=== PATIENT | male | born 1940 | race Caucasian/White ===

== ENCOUNTER 2023-08-05 17:01 | Inpatient (IN) ==
--- NOTE | 2023-08-05 18:04 | Emergency Department Note ---
Impression & Plan Knee pain, Knee Injury, Elevated serum creatinine ADMIT ED Provider Note HPI: History obtained from patient and family member at the bedside The patient is a 83-year-old gentleman who presents emergency department with a chief complaint of right lower extremity pain. Patient states that on of this past week he had a fall when he was walking down some steps and he felt some acute pain in his right knee and then fell to the ground. Patient states that he had some pain in his right knee and his right ankle since then. He has been ambulatory but with increasing difficulty and pain. Patient also states he was concerned he might be dehydrated, patient denies any nausea or vomiting, denies any chest pain or shortness of breath. Patient denies any head injury. ROS: - Per HPI Differential Diagnosis: Right knee dislocation, proximal tibia fracture, distal femur fracture, patellar dislocation, knee sprain, meniscus tear, ankle sprain, ankle dislocation, ankle fracture, amongst other potential pathologies. *Outpatient medications and allergy history reviewed. PE: General: Alert HEENT: Normocephalic, trachea midline Eyes: Extraocular eye movement is intact, no scleral erythema Pulmonary: Clear to auscultation bilaterally, no wheezing Cardio: Regular rate and rhythm GI: Abdomen is soft to palpation : No suprapubic tenderness MSK: There is mild swelling noted at the right knee and the right ankle without any overlying erythema, range of motion is intact on exam, there is a palpable dorsalis pedis pulse in the right lower extremity, there is no cyanosis, otherwise no evidence of trauma or malformation of the extremities, no edema Skin: No evidence of rash Neuro: Alert, no focal deficits Psychiatric: Cooperative INDEPENDENT 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 Lab work shows no leukocytosis, hemoglobin is stable at 12.9, platelet count is normal, CMP shows an elevated creatinine at 1.45, BUN is elevated at 37, patient was given IV fluids here in the ED. There is no transaminitis, bilirubin is normal. X-ray imaging of the right knee shows a small effusion without evidence of bony abnormality. X-ray imaging of the right ankle does not show any evidence of fracture. I discussed the above findings with the patient, he tells me he does not feel that he can ambulate at all and he states he lives alone. Patient also states he has stairs to go up to to get into his house. Overall he does not feel comfortable with discharge. His symptoms are likely secondary to a soft tissue injury of the right knee where he is having majority of his pain. I feel he would benefit from PT/OT consultation and admission to the hospital at this time. Patient is in agreement. Case was discussed with the on-call hospitalist for [facility] [place], Dr. Ma, the patient was placed for admission in stable condition. Consultants/Discussions held with other healthcare providers: -Hospitalist, Dr. Ma Disposition discussion held by myself with: -Patient Diagnosis: 1. Right knee pain/injury, acute 2. Ambulatory dysfunction, acute 3. Elevated creatinine, acute 4. Elevated BUN, acute 5. Hyperglycemia, acute, mild Disposition: Admission Roberto Canales DO Emergency Medicine Past Med/Surg History Medical History (Updated 08/05/23 @ 19:34 by Roberto Canales DO) STEPHEN (acute kidney injury) Hypertensive urgency Renal insufficiency Diplopia Family History Other Family history non-contributory Social History Smoking Status: Former smoker Preferred Language: Bangladeshi Feels Safe at Home: Yes Allergies Allergies Allergy/AdvReac Type Severity Reaction Status Date / Time No Known Allergies Allergy Verified 08/05/23 17:41 Home Meds Home Medications Medication Instructions Recorded Confirmed amlodipine 10 mg tablet 10 mg PO QAM 11/26/18 08/05/23 glucosamine-chondroitin 250 mg-200 1 - 2 tab PO QPM 11/26/18 08/05/23 mg tablet (Osteo Bi-Flex) labetalol 300 mg tablet See Rx Instructions .Route .COMPLEX 11/26/18 08/05/23 multivitamin (Multiple Vitamins 1 tab PO QPM 11/26/18 08/05/23 tablet) ascorbic acid (vitamin C) 1,000 mg 1 g PO QAM 08/05/23 08/05/23 tablet (Vitamin C) aspirin 81 mg tablet,delayed 81 mg PO QAM 08/05/23 08/05/23 release cholecalciferol (vitamin D3) 25 25 mcg PO QAM 08/05/23 08/05/23 mcg (1,000 unit) capsule (Vitamin D3) rosuvastatin 10 mg tablet 10 mg PO QPM 08/05/23 08/05/23 vitamins A,C,O-iwqm-vbtawy 2,148 1 tab PO BID 08/05/23 08/05/23 mcg-113 mg-45 mg-17.4 mg tablet (PreserVision AREDS) Results & Data (ED) Vital Signs Vital Signs - 24 hr 08/05/23 17:17 08/05/23 17:17 08/05/23 18:00 Temperature 37 C 37 C Temperature Source Oral Oral Pulse Rate 88 Pulse Rate [Right Radial] Respiratory Rate 19 19 Respiratory Effort / Characteristics Non-Labored Respiratory Depth Normal Respiratory Pattern Regular Blood Pressure 129/61 Blood Pressure [Left Arm] Blood Pressure Mean 83 Blood Pressure Mean [Left Arm] Pulse Oximetry 93 93 93 Oxygen Delivery Method Room Air Room Air Room Air Sepsis Recent Fever Within 48 Hours No Sepsis New/Unexplained Change in Mental Status N/A Sepsis Action Taken by Nursing No Action Required 08/05/23 19:15 08/05/23 21:00 Temperature Temperature Source Pulse Rate Pulse Rate [Right Radial] 91 H 91 H Respiratory Rate 20 17 Respiratory Effort / Characteristics Respiratory Depth Respiratory Pattern Blood Pressure Blood Pressure [Left Arm] 101/68 132/64 Blood Pressure Mean Blood Pressure Mean [Left Arm] 79 86 Pulse Oximetry 94 93 Oxygen Delivery Method Room Air Sepsis Recent Fever Within 48 Hours Sepsis New/Unexplained Change in Mental Status Sepsis Action Taken by Nursing Laboratory Data 08/05/23 18:47 08/05/23 18:47 Lab Results 08/05/23 Range/Units 18:47 WBC 5.56 (4.8-10.8) K/ul RBC 4.05 L (4.70-6.10) M/uL Hgb 12.9 L (14.0-18.0) g/dl Hct 38.1 L (42.0-52.0) % MCV 94.1 (80.0-100.0) fL MCH 31.9 (25.0-34.0) pg MCHC 33.9 (32.0-36.0) g/dL RDW Std Deviation 42.8 (36.4-46.3) fL RDW Coeff of [place] 12.3 (11.5-14.5) % Plt Count 144 (130-400) K/uL MPV 10.3 (9.4-12.4) fL Immature Gran % (Auto) 0.4 % Neut % (Auto) 77.5 % Lymph % (Auto) 6.8 % [place] % (Auto) 14.6 % Eos % (Auto) 0.5 % Baso % (Auto) 0.2 % Neut # (Auto) 4.31 (1.40-6.50) K/uL Lymph # (Auto) 0.38 L (1.20-3.40) K/uL [place] # (Auto) 0.81 H (0.11-0.59) K/uL Eos # (Auto) 0.03 (0.00-0.50) K/uL Baso # (Auto) 0.01 (0.00-0.20) K/uL Immature Gran # (Auto) 0.02 (0.01-0.20) K/uL Sodium 139 (136-145) mmol/L Potassium 4.1 (3.5-5.1) mmol/L Chloride 109 H (98-107) mmol/L Carbon Dioxide 22 (21-32) mmol/L Anion Gap 8 (3-11) BUN 37 H (6-23) mg/dl Creatinine 1.45 H (0.6-1.4) mg/dl Est Cr Clr Drug Dosing 38.5 ml/min Est GFR ( Amer) 50.5 ml/min Est GFR (Non-Af Amer) 43.6 ml/min BUN/Creatinine Ratio 25.5 H (10-20) Glucose 138 H (70-99(Fasting)) mg/dl Calcium 9.3 (8.6-10.3) mg/dl Total Bilirubin 0.9 (0.2-1.0) mg/dl AST 26 (13-39) U/L ALT 23 (7-52) U/L Alkaline Phosphatase 51 (34-104) U/L Total Protein 6.7 (6.0-8.3) gm/dl Albumin 3.4 (3.4-5.0) gm/dl Globulin 3.3 (2.5-4.0) gm/dl Albumin/Globulin Ratio 1.0 (0.9-2) Administered Medications Discontinued Medications Sodium Chloride (Nss) 1,000 mls @ 999 mls/hr IV .Q1H1M STA Stop: 08/05/23 18:59 Last Infusion: 08/05/23 20:48 Dose: Infused Documented By: Admin: 08/05/23 19:27 Dose: 999 mls/hr Documented By: CEK Imaging Data Radiologist's Impression: Ankle X-Ray 08/05/23 18:00 RIGHT ANKLE 3 VIEWS HISTORY: fall COMPARISON: None. FINDINGS: There is no fracture or dislocation. Diffuse soft tissue swelling. No radiopaque foreign bodies. IMPRESSION: No fractures. ACT 112: Negative or not required by law. Electronically signed by: Zana Gomez M.D. 08/05/2023 7:03 PM Knee X-Ray 08/05/23 18:00 RIGHT KNEE 3 VIEWS HISTORY: Right knee pain. fall COMPARISON: None. FINDINGS: There is no fracture or dislocation. Basilar calcifications are noted. Small to moderate knee effusion. Mild tricompartmental osteoarthritis. No radiopaque foreign bodies. IMPRESSION: 1. No fracture or dislocation within the right knee. 2. Small to moderate knee effusion. ACT 112: Negative or not required by law. Electronically signed by: Zana Gomez M.D. 08/05/2023 7:02 PM Discharge Plan Visit Data Chief Complaint: Knee Injury/Pain Stated Complaint: KNEE PAIN ED Provider: Roberto Canales Discharge Problem: Knee pain, Knee Injury, Elevated serum creatinine Patient Disposition: Home - Self-Care Condition: Good Discharge Instructions Gaetano/Other Patient Handouts: ED Knee Sprain Activity Restrictions/Additional Instructions: Please follow-up with your primary care doctor in 2 to 3 days for further management. Please return to the ER if you have any new or worsening symptoms. Please follow-up with orthopedics in the office in regards to your right knee pain, this is likely a soft tissue injury. Please utilize Tylenol and/or Motrin every 6-8 hours as needed for pain, please follow dosage instructions as indicated on the packaging. Please follow-up with your primary care doctor in regards to your elevated creatinine level (kidney function) noted today on your lab work. Forms Stand Alone Forms: My [facility], Important Visit Information Prescriptions Prescriptions: No Action amlodipine 10 mg tablet 10 mg PO QAM multivitamin [Multiple Vitamins] Tablet 1 tab PO QPM labetalol 300 mg tablet See Rx Instructions .ROUTE .COMPLEX Rx Instructions: TAKES 450 MG QAM, THEN 300 MG QPM. glucosamine-chondroitin [Osteo Bi-Flex] 250-200 mg Tablet 1 - 2 tab PO QPM ascorbic acid (vitamin C) [Vitamin C] 1,000 mg Tablet 1 g PO QAM aspirin 81 mg Tablet,Delayed Release (Dr/Ec) 81 mg PO QAM cholecalciferol (vitamin D3) [Vitamin D3] 25 mcg (1,000 unit) Capsule 25 mcg PO QAM rosuvastatin 10 mg tablet 10 mg PO QPM PreserVision AREDS 2,148 mcg-113 mg-45 mg-17.4mg Tablet 1 tab PO BID Rx Instructions: administer with AM and PM meals Referrals Referrals: Saleem Robles MD [Physician] - Antonia Greenberg MD [Primary Care Provider] -
--- NOTE | 2023-08-05 19:04 | XRay Report ---
RIGHT KNEE 3 VIEWS HISTORY: Right knee pain. fall COMPARISON: None. FINDINGS: There is no fracture or dislocation. Basilar calcifications are noted. Small to moderate kn ee effusion. Mild tricompartmental osteoarthritis. No radiopaque foreign bodies. IMPRESSION: 1. No fracture or dislocation within the right knee. 2. Small to moderate knee effusion. ACT 112: Negative or not required by law. Electronically signed by: Zana Gomez M.D. 08/05/2023 7:02 PM
--- NOTE | 2023-08-05 19:05 | XRay Report ---
RIGHT ANKLE 3 VIEWS HISTORY: fall COMPARISON: None. FINDINGS: There is no fracture or dislocation. Diffuse soft tissue swelling. No radiopaque foreign sapna dies. IMPRESSION: No fractures. ACT 112: Negative or not required by law. Electronically signed by: Zana Gomez M.D. 08/05/2023 7:03 PM
[2023-08-05 19:21] LABS: Basophils # (auto) 0.01 K/uL (0.00-0.20); Basophils % (auto) 0.2 %; Eosinophils # (auto) 0.03 K/uL (0.00-0.50); Eosinophils % (auto) 0.5 %; Hematocrit (blood only) 38.1 % (42.0-52.0); Hemoglobin 12.9 g/dl (14.0-18.0); Immature Granulocytes # (auto) 0.02 K/uL (0.01-0.20); Immature Granulocytes % (auto) 0.4 %; Lymphocytes # (auto) 0.38 K/uL (1.20-3.40); Lymphocytes % (auto) 6.8 %; Mean Corpuscular Hemoglobin 31.9 pg (25.0-34.0); Mean Corpuscular Hgb Conc 33.9 g/dL (32.0-36.0); Mean Corpuscular Volume 94.1 fL (80.0-100.0); Mean Platelet Volume 10.3 fL (9.4-12.4); Monocytes # (auto) 0.81 K/uL (0.11-0.59); Monocytes % (auto) 14.6 %; Neutrophils # (auto) 4.31 K/uL (1.40-6.50); Neutrophils % (auto) 77.5 %; Platelet Count 144 K/uL (130-400); RDW Coefficient of Variation 12.3 % (11.5-14.5); RDW Standard Deviation 42.8 fL (36.4-46.3); Red Blood Count 4.05 M/uL (4.70-6.10); White Blood Count 5.56 K/ul (4.8-10.8)
[2023-08-05 19:23] LABS: Albumin Level 3.4 gm/dl (3.4-5.0); BUN Creatinine Ratio 25.5 (10-20); Bilirubin,Total 0.9 mg/dl (0.2-1.0); Calcium 9.3 mg/dl (8.6-10.3); Creatinine Clr Calc Pharmacy 38.5 ml/min; Est GFR (African American) 50.5 ml/min; Est GFR (Non-African American) 43.6 ml/min; Globulin 3.3 gm/dl (2.5-4.0); Potassium 4.1 mmol/L (3.5-5.1); Total Protein 6.7 gm/dl (6.0-8.3)
[2023-08-05] MEDS: SODIUM CHLORIDE 0.9% 1,000 ML IV STA (19:27)
--- NOTE | 2023-08-05 22:10 | History & Physical Report ---
Date of Service August 05, 2023 Assessment & Plan (1) Knee pain: Plan: 83-year-old male with past medical history significant for hypertension, hyperlipidemia, CKD presents with fall and knee pain and ambulatory dysfunction. Patient states he was walking out of restaurant when he suddenly fell on his knees. Since then having a lot of pain in his knees and is not able to ambulate. Denies any chest pain or shortness of breath. No cough. No fevers. No nausea. No abdominal pain. Normal bowel and bladder movements. No headache. No dizziness. Vision is not great. Hard of hearing. Currently resting comfortably and hemodynamically stable. Fall Bilateral knee pain Ambulatory dysfunction Pain control PT OT Ortho consult for further recommendation CKD Possible CKD stage III Patient states he has chronic kidney disease Creatinine 1.45 Do not have baseline Will follow Hypertension On amlodipine On labetalol Will monitor Hyperlipidemia On statin DVT prophylaxis Lovenox Disposition Medical floor Full code History of Present Illness Chief Complaint: Fall, knee pain and ambulatory dysfunction Primary Care Provider: Antonia Greenberg MD 83-year-old male with past medical history significant for hypertension, hyperlipidemia, CKD presents with fall and knee pain and ambulatory dysfunction. Patient states he was walking out of restaurant when he suddenly fell on his knees. Since then having a lot of pain in his knees and is not able to ambulate. Denies any chest pain or shortness of breath. No cough. No fevers. No nausea. No abdominal pain. Normal bowel and bladder movements. No headache. No dizziness. Vision is not great. Hard of hearing. Currently resting comfortably and hemodynamically stable. Past med history. As mentioned above. Past surgical history. Cataracts.'s appendectomy. Removal of lingual tonsil. Social history. . She is currently quit smoking. Currently not drinking alcohol. No drug use. Family history. Father had cancer. Allergies Allergy/AdvReac Type Severity Reaction Status Date / Time No Known Allergies Allergy Verified 08/05/23 17:41 Home Medications Medication Instructions Recorded Confirmed Type amlodipine 10 mg tablet 10 mg PO QAM 11/26/18 08/05/23 History glucosamine-chondroitin 250 mg-200 1 - 2 tab PO QPM 11/26/18 08/05/23 History mg tablet (Osteo Bi-Flex) labetalol 300 mg tablet See Rx Instructions .Route .COMPLEX 11/26/18 08/05/23 History multivitamin (Multiple Vitamins 1 tab PO QPM 11/26/18 08/05/23 History tablet) ascorbic acid (vitamin C) 1,000 mg 1 g PO QAM 08/05/23 08/05/23 History tablet (Vitamin C) aspirin 81 mg tablet,delayed 81 mg PO QAM 08/05/23 08/05/23 History release cholecalciferol (vitamin D3) 25 25 mcg PO QAM 08/05/23 08/05/23 History mcg (1,000 unit) capsule (Vitamin D3) rosuvastatin 10 mg tablet 10 mg PO QPM 08/05/23 08/05/23 History vitamins A,C,X-phfz-syvfcf 2,148 1 tab PO BID 08/05/23 08/05/23 History mcg-113 mg-45 mg-17.4 mg tablet (PreserVision AREDS) Past Med/Surg History Medical History (Updated 08/05/23 @ 19:34 by Roberto Canales DO) STEPHEN (acute kidney injury) Hypertensive urgency Renal insufficiency Diplopia Family History Other Family history non-contributory Social History Smoking Status: Never smoker Hx Alcohol Use: No Hx Substance Use: No Preferred Language: Puerto Rican Communication Ability: Effective Rubber Compounder Required: No Beliefs That Will Affect Care: None Current Living Situation: Alone Other Information That Helps Us Care for You: No Feels Safe at Home: Yes Safety Concerns: Feels Safe At This Time Assistive Devices: Denture - Upper, Denture - Lower and Glasses Review of Systems Review of Systems: All systems reviewed & are unremarkable except as noted in HPI & below Physical Exam Physical Exam: General- Not in distress Head- atraumatic Eyes- PERRL. ENT- oropharynx clear Neck- supple, no JVD. Lungs- clear to auscultation no wheezing or crackles. Heart- regular rhythm; no murmur, no gallop. Abdomen- normal bowel sounds, soft, nontender, no distension. Extremities- no pretibial edema, no erythema seen. painful lower extremity movements Neuro- alert, oriented x 3; PERRL, no facial palsy; no dysarthria; moves extremities. Skin- warm & dry Results & Data Results & Data Vital Signs (Past 12 Hours) Vital Signs Temp Pulse Pulse Resp BP BP Pulse Ox 08/05/23 21:00 91 H 17 132/64 93 08/05/23 19:15 91 H 20 101/68 94 08/05/23 18:00 93 08/05/23 17:17 37 C 19 93 08/05/23 17:17 37 C 88 19 129/61 93 O2 Del Method 08/05/23 21:00 08/05/23 19:15 Room Air 08/05/23 18:00 Room Air 08/05/23 17:17 Room Air 08/05/23 17:17 Room Air Diagnostic Findings Laboratory Results WBC 5.56 K/ul (4.8-10.8) 08/05/23 18:47 RBC 4.05 M/uL (4.70-6.10) L 08/05/23 18:47 Hgb 12.9 g/dl (14.0-18.0) L 08/05/23 18:47 Hct 38.1 % (42.0-52.0) L 08/05/23 18:47 MCV 94.1 fL (80.0-100.0) 08/05/23 18:47 MCH 31.9 pg (25.0-34.0) 08/05/23 18:47 MCHC 33.9 g/dL (32.0-36.0) 08/05/23 18:47 RDW Std Deviation 42.8 fL (36.4-46.3) 08/05/23 18:47 RDW Coeff of [place] 12.3 % (11.5-14.5) 08/05/23 18:47 Plt Count 144 K/uL (130-400) 08/05/23 18:47 MPV 10.3 fL (9.4-12.4) 08/05/23 18:47 Immature Gran % (Auto) 0.4 % 08/05/23 18:47 Neut % (Auto) 77.5 % 08/05/23 18:47 Lymph % (Auto) 6.8 % 08/05/23 18:47 [place] % (Auto) 14.6 % 08/05/23 18:47 Eos % (Auto) 0.5 % 08/05/23 18:47 Baso % (Auto) 0.2 % 08/05/23 18:47 Neut # (Auto) 4.31 K/uL (1.40-6.50) 08/05/23 18:47 Lymph # (Auto) 0.38 K/uL (1.20-3.40) L 08/05/23 18:47 [place] # (Auto) 0.81 K/uL (0.11-0.59) H 08/05/23 18:47 Eos # (Auto) 0.03 K/uL (0.00-0.50) 08/05/23 18:47 Baso # (Auto) 0.01 K/uL (0.00-0.20) 08/05/23 18:47 Immature Gran # (Auto) 0.02 K/uL (0.01-0.20) 08/05/23 18:47 Sodium 139 mmol/L (136-145) 08/05/23 18:47 Potassium 4.1 mmol/L (3.5-5.1) 08/05/23 18:47 Chloride 109 mmol/L (98-107) H 08/05/23 18:47 Carbon Dioxide 22 mmol/L (21-32) 08/05/23 18:47 Anion Gap 8 (3-11) 08/05/23 18:47 BUN 37 mg/dl (6-23) H 08/05/23 18:47 Creatinine 1.45 mg/dl (0.6-1.4) H 08/05/23 18:47 Est Cr Clr Drug Dosing 38.5 ml/min 08/05/23 18:47 Est GFR ( Amer) 50.5 ml/min 08/05/23 18:47 Est GFR (Non-Af Amer) 43.6 ml/min 08/05/23 18:47 BUN/Creatinine Ratio 25.5 (10-20) H 08/05/23 18:47 Glucose 138 mg/dl (70-99(Fasting)) H 08/05/23 18:47 Calcium 9.3 mg/dl (8.6-10.3) 08/05/23 18:47 Total Bilirubin 0.9 mg/dl (0.2-1.0) 08/05/23 18:47 AST 26 U/L (13-39) 08/05/23 18:47 ALT 23 U/L (7-52) 08/05/23 18:47 Alkaline Phosphatase 51 U/L (34-104) 08/05/23 18:47 Total Protein 6.7 gm/dl (6.0-8.3) 08/05/23 18:47 Albumin 3.4 gm/dl (3.4-5.0) 08/05/23 18:47 Globulin 3.3 gm/dl (2.5-4.0) 08/05/23 18:47 Albumin/Globulin Ratio 1.0 (0.9-2) 08/05/23 18:47 Impressions Ankle X-Ray 08/05/23 18:00 RIGHT ANKLE 3 VIEWS HISTORY: fall COMPARISON: None. FINDINGS: There is no fracture or dislocation. Diffuse soft tissue swelling. No radiopaque foreign bodies. IMPRESSION: No fractures. ACT 112: Negative or not required by law. Electronically signed by: Zana Gomez M.D. 08/05/2023 7:03 PM Knee X-Ray 08/05/23 18:00 RIGHT KNEE 3 VIEWS HISTORY: Right knee pain. fall COMPARISON: None. FINDINGS: There is no fracture or dislocation. Basilar calcifications are noted. Small to moderate knee effusion. Mild tricompartmental osteoarthritis. No radiopaque foreign bodies. IMPRESSION: 1. No fracture or dislocation within the right knee. 2. Small to moderate knee effusion. ACT 112: Negative or not required by law. Electronically signed by: Zana Gomez M.D. 08/05/2023 7:02 PM ECG Additional Comments: ECG. Normal sinus rhythm rate of 88. Nonspecific T wave abnormalities. Code Status & VTE Plan VTE Prophylaxis Plan VTE Prophylaxis will be ordered: Yes
[2023-08-06] MEDS ORDERED: ACETAMINOPHEN 325 MG TAB PO PRN (00:36)
[2023-08-06] MEDS: ENOXAPARIN INJ 40 MG/0.4 ML SYR SQ SCH (08:10)
[2023-08-06] MEDS: ASPIRIN 81 MG ECTAB PO SCH (08:11)
[2023-08-06] MEDS: CHOLECALCIFEROL 25 MCG (1000 UNITS) TAB PO SCH (08:11)
[2023-08-06] MEDS: amLODIPine BESYLATE 5 MG TAB PO SCH (08:11)
[2023-08-06] MEDS: ASCORBIC ACID 500 MG TAB PO SCH (08:11)
[2023-08-06] MEDS: CEROVITE ADV FORMULA TAB PO SCH (08:12)
[2023-08-06] MEDS: LABETALOL HCL 300 MG TAB PO SCH ×2 (08:12→21:46)
[2023-08-06 08:40] LABS: Basophils # (auto) 0.02 K/uL (0.00-0.20); Basophils % (auto) 0.4 %; Eosinophils # (auto) 0.09 K/uL (0.00-0.50); Eosinophils % (auto) 1.8 %; Hematocrit (blood only) 34.4 % (42.0-52.0); Hemoglobin 11.6 g/dl (14.0-18.0); Immature Granulocytes # (auto) 0.02 K/uL (0.01-0.20); Immature Granulocytes % (auto) 0.4 %; Lymphocytes # (auto) 0.55 K/uL (1.20-3.40); Lymphocytes % (auto) 10.9 %; Mean Corpuscular Hgb Conc 33.7 g/dL (32.0-36.0); Mean Corpuscular Volume 94.8 fL (80.0-100.0); Mean Platelet Volume 10.3 fL (9.4-12.4); Monocytes # (auto) 1.02 K/uL (0.11-0.59); Monocytes % (auto) 20.2 %; Neutrophils # (auto) 3.34 K/uL (1.40-6.50); Neutrophils % (auto) 66.3 %; Platelet Count 140 K/uL (130-400); RDW Coefficient of Variation 12.2 % (11.5-14.5); RDW Standard Deviation 42.7 fL (36.4-46.3); Red Blood Count 3.63 M/uL (4.70-6.10); White Blood Count 5.04 K/ul (4.8-10.8)
[2023-08-06 08:53] LABS: BUN Creatinine Ratio 24.4 (10-20); Calcium 8.8 mg/dl (8.6-10.3); Creatinine Clr Calc Pharmacy 41.3 ml/min; Est GFR (African American) 55.1 ml/min; Est GFR (Non-African American) 47.5 ml/min; Magnesium 2.4 mg/dl (1.7-2.4); Potassium 4.1 mmol/L (3.5-5.1)
--- NOTE | 2023-08-06 11:50 | Hospitalist Progress Note ---
Date of Service August 06, 2023 Assessment & Plan (1) Knee pain: Plan: 83-year-old male with past medical history significant for hypertension, hyperlipidemia, CKD presents with fall and knee pain and ambulatory dysfunction. Patient states he was walking out of restaurant when he suddenly fell on his knees on 07/30/23. Since then having a lot of pain in his knees and is not able to ambulate. Fall Bilateral knee pain Ambulatory dysfunction XR of Rt knee did not note any fracture but noted small to moderate knee effusion Patient declined further exam of LE for now. Stating he wants the 'bone dr' to see. That he was told by Admitting Dr that 'Bone Dr' will see him Will optimize pain control Tylenol scheduled Will get CT Prn tramadol PT OT Will follow up ortho consulted on admission CKD 3 Per records on EPIC, CR baseline is 1.7 Creatinine 1.35 today Hypertension On amlodipine On labetalol Will monitor Hyperlipidemia On statin DVT prophylaxis Lovenox sq Disposition Medical floor Full code I spent a total of 50 minutes coordinating, documenting and providing care for this patient excluding time spent in performance of separately billed services Admission and Anticipated Discharge Date Admission Date: August 05, 2023 Subjective Patient seen and examined. Tough to get history from patient due to hearing deficit. Does report pain in both knees and right ankle usually with movement. Denies other complaints on ROS Physical Exam Constitutional: + well hydrated; no acute distress Eyes: PERRL, conjunctivae normal, anicteric sclerae ENMT: external ear and nose normal, oropharynx normal +Hearing deficits Respiratory: normal respiratory effort, lungs clear to auscultation Cardiovascular: Rate/Rhythm: regular rate and regular rhythm S1 S2 Gastrointestinal (Abdomen): normal bowel sounds, soft, nontender, no hepatosplenomegaly Musculoskeletal: No pedal edema Not mild tenderness with palpation of right knee/ankle Reports pain with passive ROM Patient declined further eval of LE Neurologic: PERRL, EOMI, accommodation nl, no face palsy, no dysarthria Results & Data Results & Data Vital Signs (Past 12 Hours) Vital Signs Temp Pulse Resp BP Pulse Ox O2 Del Method 08/06/23 07:48 36.8 C 98 H 16 126/66 94 Room Air 08/06/23 07:42 Room Air 08/06/23 01:49 37.1 C 95 H 18 145/73 H 95 Room Air Laboratory Results Abnormal lab results 08/05/23 08/06/23 Range/Units 18:47 08:12 RBC 4.05 L 3.63 L (4.70-6.10) M/uL Hgb 12.9 L 11.6 L (14.0-18.0) g/dl Hct 38.1 L 34.4 L (42.0-52.0) % Lymph # (Auto) 0.38 L 0.55 L (1.20-3.40) K/uL [place] # (Auto) 0.81 H 1.02 H (0.11-0.59) K/uL Chloride 109 H 111 H (98-107) mmol/L BUN 37 H 33 H (6-23) mg/dl Creatinine 1.45 H (0.6-1.4) mg/dl BUN/Creatinine Ratio 25.5 H 24.4 H (10-20) Glucose 138 H 120 H (70-99(Fasting)) mg/dl
[2023-08-06] MEDS: ACETAMINOPHEN 325 MG TAB PO SCH (12:26)
--- NOTE | 2023-08-06 17:53 | Orthopedic Consultation ---
Date of Consultation August 06, 2023 Assessment & Plan (1) Osteoarthritis of knee: Objective he has right knee osteoarthritis. Could have had some knee pain due to patellofemoral arthritis which would be increased going down steps. Knee effusion could be related to osteoarthritis. Recommend ice to the knees and gentle PT and see if he responds but may need aspiration injection of a steroid if he cannot mobilize himself. Aspiration could be beneficial to rule out gout as he has history of gout. Left knee never had an x-ray so recommending a left knee x-ray. Recommend serum uric acid level. With history of gout and a swollen pink left great toe would consider gout flare possible. Will x-ray left foot as well. (2) Bilateral knee effusions: Bilateral knee effusions due to osteoarthritis possible gout possible other trauma. (3) Gout: Possible onset of gout. Assess serum uric acid History of Present Illness Reason for Consultation: Knee pain Attending Physician: Bonita Marquez MD History of Present Illness 83-year-old male who said he was walking out of a restaurant and when he stepped down a step he felt pain in his right knee which caused him to go to the ground and then he realized he could not get up without help but that he had some help and he was able to walk home but the next day he could not walk. Patient has right greater than left knee pain. Since he has been admitted to the hospital he says his knees have been feeling a little bit better Allergies Allergy/AdvReac Type Severity Reaction Status Date / Time No Known Allergies Allergy Verified 08/05/23 17:41 Home Medications Medication Instructions Recorded Confirmed Type amlodipine 10 mg tablet 10 mg PO QAM 11/26/18 08/05/23 History glucosamine-chondroitin 250 mg-200 1 - 2 tab PO QPM 11/26/18 08/05/23 History mg tablet (Osteo Bi-Flex) labetalol 300 mg tablet See Rx Instructions .Route .COMPLEX 11/26/18 08/05/23 History multivitamin (Multiple Vitamins 1 tab PO QPM 11/26/18 08/05/23 History tablet) ascorbic acid (vitamin C) 1,000 mg 1 g PO QAM 08/05/23 08/05/23 History tablet (Vitamin C) aspirin 81 mg tablet,delayed 81 mg PO QAM 08/05/23 08/05/23 History release cholecalciferol (vitamin D3) 25 25 mcg PO QAM 08/05/23 08/05/23 History mcg (1,000 unit) capsule (Vitamin D3) rosuvastatin 10 mg tablet 10 mg PO QPM 08/05/23 08/05/23 History vitamins A,C,N-rdaj-tbxzlz 2,148 1 tab PO BID 08/05/23 08/05/23 History mcg-113 mg-45 mg-17.4 mg tablet (PreserVision AREDS) Patient History Medical History (Updated 08/06/23 @ 17:49 by Brian Sethi MD) STEPHEN (acute kidney injury) Hypertensive urgency Renal insufficiency Diplopia Family History Other Family history non-contributory Social History Smoking Status: Never smoker Hx Alcohol Use: No Hx Substance Use: No Preferred Language: [place] Communication Ability: Effective Head Librarian Required: No Beliefs That Will Affect Care: None Current Living Situation: Alone Other Information That Helps Us Care for You: No Feels Safe at Home: Yes Safety Concerns: Feels Safe At This Time Assistive Devices: Denture - Upper, Denture - Lower and Glasses Review of Systems Review of Systems: Does have a history of gout and does have pain in his left great toe but not in his right foot Physical Exam Physical Exam: Patient is holding his knees in slight flexed position because of more comfortable. He has bilateral knee effusions and no gross instability. He coul d hold his legs up against gravity with mild extensor lag but intact extensor mechanism. Both knees are tender to palpation he has moderately large effusions bilaterally. His left great toe is pink and tender over the MP joint. There are some tenderness on the first metatarsal. Results & Data Vital Signs (Past 12 Hours) Vital Signs Temp Pulse Resp BP Pulse Ox O2 Del Method 08/06/23 15:18 37.3 C 82 16 109/62 94 Room Air 08/06/23 07:48 36.8 C 98 H 16 126/66 94 Room Air 08/06/23 07:42 Room Air Diagnostic Findings Reviewed x-rays of the knee on the right side which demonstrate moderately advanced patellofemoral osteoarthritis and mild medial and lateral tibiofemoral arthritis with some mild to moderate tricompartmental osteoarthritis in general. Not clearly [id number] anywhere. No acute fractures on the right knee.
[2023-08-06 18:27] LABS: Uric Acid 8.1 mg/dl (2.6-7.2)
--- NOTE | 2023-08-06 18:53 | CT Scan Report ---
CT knee RT wo con HISTORY: 83 years-old Male Knee pain/swelling. For better assessment acute right knee pain status po st fall COMPARISON: Radiographs 08/05/2023 TECHNIQUE: Multiple axial CT images of the right knee were obtained without IV contrast. A dose lower ing technique was used consistent with the principals of IRIS. FINDINGS: Mild tricompartmental osteoarthritis. Mildly demineralized appearance of the bones. No acute fracture , dislocation, osseous erosion or osteochondral defect. No intra-articular loose bodies identified. S [id number] joint effusion redemonstrated. 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 Small in the complex Ramon's cyst with leaking compo nent. Moderate atrophy of the proximal soleus and gastrocnemius musculature. In specific mild circumf erential subcutaneous edema of the knee and calf. Tendons and ligaments are not well evaluated by CT technique. Arterial calcifications are noted. IMPRESSION: 1. Mild tricompartmental osteoarthritis with small to moderate joint effusion. 2. 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 3. No acute osseous abnormality. 4. Moderate atrophy of the medial gastrocnemius and soleus musculature. 5. Nonspecific subcutaneous edema. ACT 112: Negative or not required by law. The above report was generated using voice recognition software. It may contain grammatical, syntax o r spelling errors. Electronically signed by: Hill Arenas M.D. 08/06/2023 6:51 PM
[2023-08-06] MEDS ORDERED: NON-FORMULARY MEDICATION (Glucosamine-Chondroitin [Osteo Bi-Flex] 250-200 mg Tablet) PO SCH (21:00)
[2023-08-06] MEDS: ROSUVASTATIN CALCIUM 10 MG TAB PO SCH (21:45)
[2023-08-06] MEDS: MULTIVITAMIN TAB PO SCH (21:45)
--- NOTE | 2023-08-06 23:07 | Electrocardiogram Report ---
Test Reason : Blood Pressure : / mmHG Vent. Rate : 088 BPM Atrial Rate : 088 BPM P-R Int : 186 ms QRS Dur : 088 ms QT Int : 378 ms P-R-T Axes : 054 056 026 degrees QTc Int : 457 ms Normal sinus rhythm Nonspecific T wave abnormality When compared with ECG of 15-NOV-2014 06:24, Nonspecific T wave abnormality now evident in Anterior leads Confirmed by Moncho Abad ([id number]) on 08/06/2023 11:07:08 PM Referred By: REFERRED SELF Confirmed By:Moncho Abad
--- NOTE | 2023-08-07 07:15 | XRay Report ---
XR knee LT 3V HISTORY: 83 years-old Male pain effusion hx fall hx gout acute left knee pain with history of gout a rthropathy COMPARISON: None TECHNIQUE: 3 views of the left knee FINDINGS: Mild tricompartmental osteoarthritis. Small to moderate joint effusion. Mild circumferential soft tis alex swelling. No acute fracture, dislocation or osseous erosion. Arterial calcifications. IMPRESSION: 1. No acute fracture or dislocation. 2. Mild osteoarthritis with small to moderate joint effusion. ACT 112: Negative or not required by law. The above report was generated using voice recognition software. It may contain grammatical, syntax o r spelling errors. Electronically signed by: Hill Arenas M.D. 08/07/2023 7:14 AM
--- NOTE | 2023-08-07 07:18 | XRay Report ---
XR foot LT min 3V routine HISTORY: 83 years-old Male Swelling MTP joint great toe rule out fx, gout, OA acute pain and swellin g of left foot COMPARISON: None TECHNIQUE: 3 views of the left foot FINDINGS: Severe first MTP joint osteoarthritis. Second metatarsal medial cortical thickening appears chronic. Large plantar calcaneal disease identified. There is otherwise mostly mild to moderate multifocal ost eoarthritis with arterial calcifications. Mild diffuse soft tissue swelling. No acute fracture, dislo cation or osseous erosion. Mild hallux valgus. IMPRESSION: 1. No acute osseous abnormality. 2. Severe first MTP joint osteoarthritis. ACT 112: Negative or not required by law. The above report was generated using voice recognition software. It may contain grammatical, syntax o r spelling errors. Electronically signed by: Hill Arenas M.D. 08/07/2023 7:17 AM
[2023-08-07 07:31] LABS: Hematocrit (blood only) 33.5 % (42.0-52.0); Hemoglobin 11.3 g/dl (14.0-18.0); Mean Corpuscular Hemoglobin 31.8 pg (25.0-34.0); Mean Corpuscular Hgb Conc 33.7 g/dL (32.0-36.0); Mean Corpuscular Volume 94.4 fL (80.0-100.0); Mean Platelet Volume 10.5 fL (9.4-12.4); Platelet Count 137 K/uL (130-400); RDW Coefficient of Variation 12.1 % (11.5-14.5); RDW Standard Deviation 42.1 fL (36.4-46.3); Red Blood Count 3.55 M/uL (4.70-6.10); White Blood Count 4.66 K/ul (4.8-10.8)
[2023-08-07 07:54] LABS: BUN Creatinine Ratio 25.9 (10-20); Est GFR (African American) 51.4 ml/min; Est GFR (Non-African American) 44.3 ml/min
--- NOTE | 2023-08-07 08:22 | Orthopedic Progress Note ---
Date of Service August 07, 2023 resting comfortably in bed. Assessment & Plan (1) Gout: Plan: In view of elevated uric acid patient should be treated for gout. I will leave this to the medical team with appropriate treatment they want treated with. Ice to knees and physical therapy. If cannot mobilize patient can do knee aspirations and steroid injections. Admission and Anticipated Discharge Date Admission Date: August 05, 2023 Review of Systems Review of Systems: Noncontributory Physical Exam Physical Exam: No change in exam from yesterday Results & Data Vital Signs (Past 12 Hours) Vital Signs Temp Pulse Resp BP Pulse Ox O2 Del Method 08/07/23 08:04 37.5 C 87 18 119/68 93 Room Air 08/07/23 07:56 Room Air 08/06/23 21:33 36.8 C 89 17 125/64 96 Room Air Laboratory Results Uric acid 8.1 Diagnostic Findings Foot x-rays demonstrate osteoarthritis MTP joint with some hallux valgus no fracture
[2023-08-07 09:17] LABS: Estimated Average Glucose 117 mg/dl; Hemoglobin A1C 5.7 % (4.5-5.6)
[2023-08-07] MEDS: predniSONE 20 MG TAB PO SCH (09:54)
--- NOTE | 2023-08-07 11:23 | Hospitalist Progress Note ---
Date of Service August 07, 2023 Assessment & Plan (1) Knee pain: Plan: 83-year-old male with past medical history significant for hypertension, hyperlipidemia, CKD presents with fall and knee pain and ambulatory dysfunction. Patient states he was walking out of restaurant when he suddenly fell on his knees on 07/30/23. Since then having a lot of pain in his knees and is not able to ambulate. Fall Bilateral knee pain Ambulatory dysfunction XR of Rt knee did not note any fracture but noted small to moderate knee effusion XR of Lt knee did not show any fraacture but noted mild OA with small to moderate effusion XR of left foot showed severe 1st MTP OA CT of Rt Knee showed similar findings Uric acid is 8.1 With this and reported h/o Gout many years ago Likely gout flare in patient with Osteoarthritis Started on prednisone PT/OT CKD 3 Per records on EPIC, CR baseline is 1.7 Creatinine 1.43 today Hypertension Stable On amlodipine On labetalol Will monitor Hyperlipidemia On statin DVT prophylaxis Lovenox sq Disposition Medical floor CM working on rehab Full code I spent a total of 40 minutes coordinating, documenting and providing care for this patient excluding time spent in performance of separately billed services Admission and Anticipated Discharge Date Admission Date: August 05, 2023 Subjective Patient seen and examined Reports right knee pain is improved today since starting prednisone this morning Reported he had a gout episode so many years ago. Denied any other new complaints Physical Exam Constitutional: + well hydrated; no acute distress Eyes: PERRL, conjunctivae normal, anicteric sclerae ENMT: external ear and nose normal, oropharynx normal +hearing deficits Respiratory: normal respiratory effort, lungs clear to auscultation Cardiovascular: Rate/Rhythm: regular rate and regular rhythm S1 S2 Gastrointestinal (Abdomen): normal bowel sounds, soft, nontender, no hepatosplenomegaly Musculoskeletal: Tenderness over both knees (R>L) with mild swelling Able to move legs around more today Neurologic: PERRL, EOMI, accommodation nl, no face palsy, no dysarthria Psychiatric: A+Ox3, euthymic affect Results & Data Results & Data Vital Signs (Past 12 Hours) Vital Signs Temp Pulse Resp BP Pulse Ox O2 Del Method 08/07/23 08:04 37.5 C 87 18 119/68 93 Room Air 08/07/23 07:56 Room Air Laboratory Results Abnormal lab results 08/06/23 08/07/23 Range/Units 08:12 06:32 WBC 4.66 L (4.8-10.8) K/ul RBC 3.55 L (4.70-6.10) M/uL Hgb 11.3 L (14.0-18.0) g/dl Hct 33.5 L (42.0-52.0) % Chloride 111 H (98-107) mmol/L BUN 37 H (6-23) mg/dl Creatinine 1.43 H (0.6-1.4) mg/dl BUN/Creatinine Ratio 25.9 H (10-20) Glucose 117 H (70-99(Fasting)) mg/dl Hemoglobin A1c 5.7 H (4.5-5.6) % Uric Acid 8.1 H (2.6-7.2) mg/dl
[2023-08-07] MEDS: traMADol HCL 50 MG TABLET PO PRN (11:56)
[2023-08-08 06:27] LABS: Hematocrit (blood only) 33.3 % (42.0-52.0); Hemoglobin 11.6 g/dl (14.0-18.0); Mean Corpuscular Hemoglobin 31.7 pg (25.0-34.0); Mean Corpuscular Hgb Conc 34.8 g/dL (32.0-36.0); Mean Platelet Volume 10.3 fL (9.4-12.4); Platelet Count 158 K/uL (130-400); RDW Coefficient of Variation 11.7 % (11.5-14.5); RDW Standard Deviation 39.3 fL (36.4-46.3); Red Blood Count 3.66 M/uL (4.70-6.10); White Blood Count 4.28 K/ul (4.8-10.8)
[2023-08-08 06:50] LABS: BUN Creatinine Ratio 29.4 (10-20); Calcium 9.1 mg/dl (8.6-10.3); Est GFR (African American) 54.6 ml/min; Est GFR (Non-African American) 47.1 ml/min; Potassium 4.3 mmol/L (3.5-5.1)
--- NOTE | 2023-08-08 12:37 | Hospitalist Progress Note ---
Date of Service August 08, 2023 Assessment & Plan (1) Knee pain: Plan: 83-year-old male with past medical history significant for hypertension, hyperlipidemia, CKD presents with fall and knee pain and ambulatory dysfunction. Patient states he was walking out of restaurant when he suddenly fell on his knees on 07/30/23. Since then having a lot of pain in his knees and is not able to ambulate. Fall Bilateral knee pain Ambulatory dysfunction XR of Rt knee did not note any fracture but noted small to moderate knee effusion XR of Lt knee did not show any fraacture but noted mild OA with small to moderate effusion XR of left foot showed severe 1st MTP OA CT of Rt Knee showed similar findings Uric acid is 8.1 With this and reported h/o Gout many years ago Likely gout flare in patient with Osteoarthritis Currently on prednisone PT/OT eval noted CM working on placement. Awaiting auth for dc CKD 3 Per records on EPIC, CR baseline is 1.7 Creatinine 1.36 today Hypertension Stable On amlodipine On labetalol Will monitor Hyperlipidemia On statin DVT prophylaxis Lovenox sq Disposition Medical floor CM working on rehab Full code I spent a total of 35 minutes coordinating, documenting and providing care for this patient excluding time spent in performance of separately billed services Admission and Anticipated Discharge Date Admission Date: August 05, 2023 Subjective Patient seen and examined Reports knee pain continues to improve Denied any other new complaints Physical Exam Constitutional: + well hydrated; no acute distress Eyes: PERRL, conjunctivae normal, anicteric sclerae ENMT: external ear and nose normal, oropharynx normal Respiratory: normal respiratory effort, lungs clear to auscultation Cardiovascular: Rate/Rhythm: regular rate and regular rhythm S1 S2 Gastrointestinal (Abdomen): normal bowel sounds, soft, nontender, no hepatosplenomegaly Musculoskeletal: Bilateral knee swelling Nontender today Neurologic: PERRL, EOMI, accommodation nl, no face palsy, no dysarthria Psychiatric: A+Ox3, euthymic affect Results & Data Results & Data Vital Signs (Past 12 Hours) Vital Signs Temp Pulse Resp BP Pulse Ox O2 Del Method 08/08/23 07:03 36.9 C 83 16 124/54 L 93 Room Air Laboratory Results Abnormal lab results 08/08/23 Range/Units 05:44 WBC 4.28 L (4.8-10.8) K/ul RBC 3.66 L (4.70-6.10) M/uL Hgb 11.6 L (14.0-18.0) g/dl Hct 33.3 L (42.0-52.0) % BUN 40 H (6-23) mg/dl BUN/Creatinine Ratio 29.4 H (10-20) Glucose 118 H (70-99(Fasting)) mg/dl
--- NOTE | 2023-08-09 13:50 | Hospitalist Progress Note ---
Date of Service August 09, 2023 Assessment & Plan (1) Knee pain: Plan: 83-year-old male with past medical history significant for hypertension, hyperlipidemia, CKD presents with fall and knee pain and ambulatory dysfunction. Patient states he was walking out of restaurant when he suddenly fell on his knees on 07/30/23. Since then having a lot of pain in his knees and is not able to ambulate. Fall Bilateral knee pain Ambulatory dysfunction XR of Rt knee did not note any fracture but noted small to moderate knee effusion XR of Lt knee did not show any fraacture but noted mild OA with small to moderate effusion XR of left foot showed severe 1st MTP OA CT of Rt Knee showed similar findings Uric acid is 8.1 With this and reported h/o Gout many years ago Likely gout flare in patient with Osteoarthritis Currently on prednisone PT/OT eval noted CM working on placement. Awaiting auth for dc CKD 3 Per records on EPIC, CR baseline is 1.7y Hypertension Stable On amlodipine On labetalol Will monitor Hyperlipidemia On statin DVT prophylaxis Lovenox sq Disposition Medical floor CM working on rehab Full code I spent a total of 30 minutes coordinating, documenting and providing care for this patient excluding time spent in performance of separately billed services Admission and Anticipated Discharge Date Admission Date: August 05, 2023 Subjective Patient seen and examined Reports knee pain continues to improve Denied any other new complaints Physical Exam Constitutional: + well hydrated; no acute distress Eyes: PERRL, conjunctivae normal, anicteric sclerae ENMT: external ear and nose normal, oropharynx normal Respiratory: normal respiratory effort, lungs clear to auscultation Cardiovascular: Rate/Rhythm: regular rate and regular rhythm Gastrointestinal (Abdomen): normal bowel sounds, soft, nontender, no hepatosplenomegaly Musculoskeletal: Knee swelling b/l Nontender Neurologic: PERRL, EOMI, accommodation nl, no face palsy, no dysarthria Results & Data Results & Data Vital Signs (Past 12 Hours) Vital Signs Temp Pulse Resp BP Pulse Ox O2 Del Method 08/09/23 07:08 36.9 C 83 16 122/71 94 Room Air
--- NOTE | 2023-08-10 13:38 | Hospitalist Progress Note ---
Date of Service August 10, 2023 Assessment & Plan (1) Knee pain: Plan: 83-year-old male with past medical history significant for hypertension, hyperlipidemia, CKD presents with fall and knee pain and ambulatory dysfunction. Patient states he was walking out of restaurant when he suddenly fell on his knees on 07/30/23. Since then having a lot of pain in his knees and is not able to ambulate. Fall Bilateral knee pain Ambulatory dysfunction XR of Rt knee did not note any fracture but noted small to moderate knee effusion XR of Lt knee did not show any fraacture but noted mild OA with small to moderate effusion XR of left foot showed severe 1st MTP OA CT of Rt Knee showed similar findings Uric acid was 8.1 With this and reported h/o Gout many years ago, Likely gout flare in patient with Osteoarthritis Currently on prednisone. Dose reduced to 20mg daily today PT/OT valencia noted CM working on placement. Awaiting auth for dc CKD 3 Per records on EPIC, CR baseline is 1.7 Hypertension Stable On amlodipine On labetalol Hyperlipidemia On statin DVT prophylaxis Lovenox sq Disposition Medical floor CM working on rehab Full code I spent a total of 30 minutes coordinating, documenting and providing care for this patient excluding time spent in performance of separately billed services Admission and Anticipated Discharge Date Admission Date: August 05, 2023 Subjective Patient seen and examined Reports knee pain continues to improve. Pain is mild today Denied any other new complaints Physical Exam Constitutional: + well hydrated; no acute distress Eyes: PERRL, conjunctivae normal, anicteric sclerae ENMT: external ear and nose normal, oropharynx normal Respiratory: normal respiratory effort, lungs clear to auscultation Cardiovascular: Rate/Rhythm: regular rate and regular rhythm S1 S2 Gastrointestinal (Abdomen): normal bowel sounds, soft, nontender, no hepatosplenomegaly Musculoskeletal: Trace pedal edema No tenderness around knees/ankle Neurologic: PERRL, EOMI, accommodation nl, no face palsy, no dysarthria Psychiatric: A+Ox3, euthymic affect Results & Data Results & Data Vital Signs (Past 12 Hours) Vital Signs Temp Pulse Resp BP Pulse Ox O2 Del Method 08/10/23 07:59 36.8 C 83 18 137/75 95 Room Air
[2023-08-11] MEDS: predniSONE 20 MG TAB PO SCH (08:30)
--- NOTE | 2023-08-11 11:36 | Discharge Summary ---
Date of Service August 11, 2023 Admission HPI Per Admitting Provider 83-year-old male with past medical history significant for hypertension, hyperlipidemia, CKD presents with fall and knee pain and ambulatory dysfunction. Patient states he was walking out of restaurant when he suddenly fell on his knees. Since then having a lot of pain in his knees and is not able to ambulate. Denies any chest pain or shortness of breath. No cough. No fevers. No nausea. No abdominal pain. Normal bowel and bladder movements. No headache. No dizziness. Vision is not great. Hard of hearing. Currently resting comfortably and hemodynamically stable. Past med history. As mentioned above. Past surgical history. Cataracts.'s appendectomy. Removal of lingual tonsil. Social history. . She is currently quit smoking. Currently not drinking alcohol. No drug use. Family history. Father had cancer. Admission Exam Per Admitting Provider General- Not in distress Head- atraumatic Eyes- PERRL. ENT- oropharynx clear Neck- supple, no JVD. Lungs- clear to auscultation no wheezing or crackles. Heart- regular rhythm; no murmur, no gallop. Abdomen- normal bowel sounds, soft, nontender, no distension. Extremities- no pretibial edema, no erythema seen. painful lower extremity movements Neuro- alert, oriented x 3; PERRL, no facial palsy; no dysarthria; moves extremities. Skin- warm & dry Principal Diagnosis Gout Fall Ambulatory dysfunction Discharge Exam Constitutional + well hydrated; no acute distress Eyes PERRL, conjunctivae normal, anicteric sclerae ENMT external ear and nose normal, oropharynx normal Respiratory normal respiratory effort, lungs clear to auscultation Cardiovascular Rate/Rhythm: regular rate and regular rhythm Gastrointestinal (Abdomen) normal bowel sounds, soft, nontender, no hepatosplenomegaly Musculoskeletal No tenderness around knees Neurologic PERRL, EOMI, accommodation nl, no face palsy, no dysarthria Psychiatric A+Ox3, euthymic affect Discharge Data Allergies Allergy/AdvReac Type Severity Reaction Status Date / Time No Known Allergies Allergy Verified 08/05/23 17:41 Consultations 08/05/23 19:53 ED Decision to Admit Stat 08/06/23 08:00 Consult Orthopedic Surgery Routine Ordered Studies 08/06/23 17:08 CT knee RT wo con Urgent Hospital Course (1) Knee pain: 83-year-old male with past medical history significant for hypertension, hy perlipidemia, CKD presents with fall and knee pain and ambulatory dysfunction. Patient states he was walking out of restaurant when he suddenly fell on his knees on 07/30/23. Since then having a lot of pain in his knees and is not able to ambulate. Fall Bilateral knee pain Ambulatory dysfunction XR of Rt knee did not note any fracture but noted small to moderate knee effusion XR of Lt knee did not show any fraacture but noted mild OA with small to moderate effusion XR of left foot showed severe 1st MTP OA CT of Rt Knee showed similar findings Uric acid was 8.1 With this and reported h/o Gout many years ago, Likely gout flare in patient with Osteoarthritis Was managed with po prednisone Pain and swelling improved Reports only mild pain today Discharged on po prednisone for 3 more days to complete treatment He needs to follow up with PCP Discharged to SNF for rehab. Continue PT/OT at rehab CKD 3 Per records on EPIC, CR baseline is 1.7 Last Cr inpatient was 1.36 Hypertension Stable On amlodipine On labetalol Hyperlipidemia On statin Total Time Total Time Spent Total Time Spent (In Minutes): 35 Total Time Includes: Examination of the Patient, Discharge Planning and Medication Reconciliation Discharge Plan Discharge Items Patient Disposition: Transfer Long Term Fac Reason For Visit: FALL, KNEE PAIN, AMBULATORY DYSFUNCTION Discharge Diagnosis: Gout Fall Ambulatory dysfunction Condition on Discharge: Good Activity: As commented below Activity Comment: Per Physical therapist recommendations. use walker Non-emergency contact: Primary Care Provider Call non-emergency contact if: you have any medication questions Follow-up/Referrals: Antonia Greenberg MD [Primary Care Provider] - Diet: Heart Healthy Addtl Attending Provider Instructions: Mr Multani You came to the hospital for knee pains and difficulty walking. You were evaluated and managed for gout. You are being discharged on prednisone for a few more days Please ensure follow up with your Family Doctor. It was a pleasure taking care of you. Pending Studies at Discharge: No Stand-Alone Forms: My [email or web address] Skilled Items Patient informed of condition?: Yes DNR: No Discharge Level of Care: Skilled Communicable Disease: No Discharge Prognosis: Stable Lines: None Urinary Catheter: No Medications and DC Order Prescriptions: New acetaminophen 325 mg Tablet 650 mg PO Q6H PRN (Reason: pain) Qty: 30 0RF prednisone 20 mg Tablet 20 mg PO DAILY Qty: 3 0RF Continued multivitamin [Multiple Vitamins] Tablet 1 tab PO QPM ascorbic acid (vitamin C) [Vitamin C] 1,000 mg Tablet 1 g PO QAM Qty: 30 0RF aspirin 81 mg Tablet,Delayed Release (Dr/Ec) 81 mg PO QAM Qty: 30 0RF amlodipine 10 mg tablet 10 mg PO QAM Qty: 30 0RF labetalol 300 mg tablet See Rx Instructions .ROUTE .COMPLEX Qty: 90 0RF Rx Instructions: TAKES 450 MG QAM, THEN 300 MG QPM. cholecalciferol (vitamin D3) [Vitamin D3] 25 mcg (1,000 unit) Capsule 25 mcg PO QAM Qty: 30 0RF glucosamine-chondroitin [Osteo Bi-Flex] 250-200 mg Tablet 1 - 2 tab PO QPM Qty: 30 0RF rosuvastatin 10 mg tablet 10 mg PO QPM Qty: 30 0RF Changed PreserVision AREDS 2,148 mcg-113 mg-45 mg-17.4mg Tablet 1 tab PO DAILY Qty: 30 0RF Rx Instructions: administer with AM and PM meals Discharge Orders: Discharge Order (Routine); Ordered 08/11/23 Ordered By: Bonita Marquez Admission Data Admit Date/Time: 08/05/23 22:05 Attending Provider: Bonita Marquez I. Admit Provider: Rishabh Ma Primary Care Provider: Antonia Greenberg Other Providers: Rishabh Ma; Bhanu Zapata; Patrick Cosme; Hudson Corea; Cande Daniels; Chad Rockwell; Sherrell Toth; Festus Marquez; Ciro Valdez; Nelida Benítez Andrew J.; Ciro Palomo; Nomi Bailey; Brian Sethi; Derek Harris; Alfonzo Veloz; Sherrell Givens; Almas Parada; Too Cruz; Sidney Jenkins; Zee Santiago; Medhat Brownlee; Umesh Holloway; Rita Palomo; Hill Alicea; Nelli Santacruz; [facility]
== END 2023-08-11 15:03 | DRG 554 ==
LOC: ED 17:01 → 3N 22:05